=== PATIENT | female | born 1970 | race Caucasian/White ===

== ENCOUNTER → 2021-12-31 12:47 | Outpatient (CLI) | payer MEDICARE, SELFPAY ==
--- NOTE | ~2021-12-31 | XR_ITS ---
XR chest 2V DATE: 12/31/2021 13:19 INDICATION: Cough TECHNIQUE: PA and lateral views COMPARISON: 04/18/2015 2 view chest FINDINGS: Normal heart size. No hilar or mediastinal enlargement. No pulmonary infiltrate or consolid ation, pleural effusion or pulmonary vascular congestion or pneumothorax is detected. There is osteopenia. IMPRESSION: No active cardiopulmonary disease Reviewed, dictated and finalized at location B.
== END ==
PROVIDERS: PCP Internal Medicine
DX: R05.9 Cough, unspecified (principal)
CPT/HCPCS: 71046

== ENCOUNTER → 2022-05-14 12:32 | Outpatient (CLI) | payer MEDICARE, SELFPAY ==
--- NOTE | ~2022-05-14 | XR_ITS ---
EXAM: XR hand RT 2V, XR wrist LT 2V, XR wrist RT 2V, XR hand LT 2V DATE: 05/14/2022 14:34 HISTORY: Multiple joint pain . COMPARISON: None available. FINDINGS: Decreased mineralization. No fracture or dislocation. No lytic or blastic lesion. Joint sp aces are maintained. No erosion or periosteal change. Soft tissues within normal limits. IMPRESSION: Osteopenia. Otherwise normal bilateral hand and wrist radiograph findings. Reviewed, dictated and finalized at location K. 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 Otherwise normal bilateral hand and wrist radiograph fi ndings. IMPRESSION: Osteopenia. Otherwise normal bilateral hand and wrist radiograph fi ndings. IMPRESSION: Osteopenia. Otherwise normal bilateral hand and wrist radiograph fi ndings.
--- NOTE | ~2022-05-14 | XR_ITS ---
EXAM: XR knee RT 2V, XR knee LT 2V DATE: 05/14/2022 14:34 HISTORY: Multiple joint pain . COMPARISON: None available. FINDINGS: Decreased mineralization. No fracture or dislocation. No lytic or blastic lesion. Mild meredith ateral medial joint space narrowing. Mild tricompartmental osteophytosis. No erosion or periosteal ch isaura. Soft tissues within normal limits. IMPRESSION: Osteopenia. Mild bilateral knee osteoarthritis. Reviewed, dictated and finalized at location K. 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 Mild bilateral knee osteoarthritis.
--- NOTE | ~2022-05-14 | XR_ITS ---
EXAM: XR hip BI wo pelvis DATE: 05/14/2022 14:34 HISTORY: Multiple joint pain . COMPARISON: None available. FINDINGS: Decreased mineralization. No fracture or dislocation. No lytic or blastic lesion. 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 No erosion or periosteal change . Soft tissues within normal limits. IMPRESSION: Osteopenia. Osteitis pubis. Otherwise normal bilateral hip radiograph findings. Reviewed, dictated and finalized at location K. TER HELPER IMPRESSION: Osteopenia. Osteitis pubis. Otherwise normal bilateral hip radiogra ph findings.
--- NOTE | ~2022-05-14 | XR_ITS ---
EXAM: XR elbow RT 2V, XR elbow LT 2V DATE: 05/14/2022 14:34 HISTORY: Multiple joint pain . COMPARISON: None available. FINDINGS: Normal mineralization. No fracture or dislocation. No lytic or blastic lesion. Joint space s are maintained. No erosion or periosteal change. Soft tissues within normal limits. IMPRESSION: Normal normal left and right elbow radiograph findings. Reviewed, dictated and finalized at location K. 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
--- NOTE | ~2022-05-14 | XR_ITS ---
EXAM: XR shoulder RT min 2V, XR shoulder LT min 2V DATE: 05/14/2022 14:34 HISTORY: Multiple joint pain . COMPARISON: None available. FINDINGS: Decreased mineralization. No fracture or dislocation. No lytic or blastic lesion. Mild deg enerative AC joint and glenohumeral joint change. No erosion or periosteal change. Soft tissues withi n normal limits. IMPRESSION: Mild degenerative changes in the bilateral shoulders. Reviewed, dictated and finalized at location K. 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
--- NOTE | ~2022-05-14 | XR_ITS ---
EXAM: XR ankle RT 2V, XR ankle LT 2V, XR foot LT 2V, XR foot RT 2V DATE: 05/14/2022 14:34 HISTORY: Multiple joint pain . COMPARISON: None available. FINDINGS: Decreased mineralization. No fracture or dislocation. No lytic or blastic lesion. Mild Ach illes and plantar enthesopathy. Mild bilateral hallux valgus. No erosion or periosteal change. Soft t issues within normal limits. IMPRESSION: Osteopenia. Mild scattered degenerative change. Mild hallux valgus. Reviewed, dictated and finalized at location K. POURER IMPRESSION: Osteopenia. Mild scattered degenerative change. Mild hallux valgus. IMPRESSION: Osteopenia. Mild scattered degenerative change. Mild hallux valgus. IMPRESSION: Osteopenia. Mild scattered degenerative change. Mild hallux valgus.
== END ==
PROVIDERS: PCP Internal Medicine; Visit Provider Internal Medicine Rheumatology
DX: M25.50 Pain in unspecified joint (principal); M85.88 Other specified disorders of bone density and structure, other site; M85.871 Other specified disorders of bone density and structure, right ankle and foot; M85.872 Other specified disorders of bone density and structure, left ankle and foot; M19.071 Primary osteoarthritis, right ankle and foot; M19.072 Primary osteoarthritis, left ankle and foot; M20.11 Hallux valgus (acquired), right foot; M20.12 Hallux valgus (acquired), left foot; M85.861 Other specified disorders of bone density and structure, right lower leg; M85.862 Other specified disorders of bone density and structure, left lower leg; M17.0 Bilateral primary osteoarthritis of knee; M19.011 Primary osteoarthritis, right shoulder; M19.012 Primary osteoarthritis, left shoulder; M85.841 Other specified disorders of bone density and structure, right hand; M85.842 Other specified disorders of bone density and structure, left hand
CPT/HCPCS: 73030; 73070; 73100; 73120; 73521; 73560; 73600; 73620